=== PATIENT | male | born 1995 | race Native Hawaiian/Other Pacific Islander ===

== ENCOUNTER 2017-02-15 18:16 | Emergency (ER) | payer SELFPAY ==
[2017-02-15 18:21] VITALS: BP 149/65; PULSE 90; RESP 16; TEMP 98.7; O2SAT 99
--- NOTE | 2017-02-15 18:46 | ED PDOC ---
HPI: General Adult Time Seen by Provider: 02/15/17 18:23 Chief Complaint (Nursing): Abnormal Skin Integrity Chief Complaint (Provider): right hand laceration History Per: Patient History/Exam Limitations: no limitations Additional Complaint(s): García Bauer is a 21 year old right hand dominant male who presents to the emergency department with superficial laceration to right palm sustained just prior to arrival when he accidentally cut his hand with a knife. He came right to ED. Tetanus is up to date. He denies any acute pain and he denies any numbness or tingling to affected area. PMD: None provided. Past Medical History Reviewed: Historical Data, Nursing Documentation, Vital Signs Vital Signs: Last Vital Signs Temp 98.7 F 02/15/17 18:18 Pulse 90 02/15/17 18:18 Resp 16 02/15/17 18:18 BP 149/65 02/15/17 18:18 Pulse Ox 99 02/15/17 18:51 - Medical History PMH: No Chronic Diseases - Surgical History Surgical History: No Surg Hx - Family History Family History: States: No Known Family Hx - Living Arrangements Living Arrangements: With Friends/Others - Social History Current smoker - smoking cessation education provided: No Alcohol: None Drugs: Denies - Immunization History Hx Tetanus Toxoid Vaccination: Yes (last booster 3 years ago) - Allergies Allergies/Adverse Reactions: Allergies Allergy/AdvReac Type Severity Reaction Status Date / Time No Known Allergies Allergy Verified 02/15/17 18:23 Review of Systems ROS Statement: Except As Marked, All Systems Reviewed And Found Negative ( laceration on right hand) Musculoskeletal: Positive for: Other (right hand laceration) Physical Exam - Reviewed Nursing Documentation Reviewed: Yes Vital Signs Reviewed: Yes - Physical Exam Appears: Positive for: Well, Non-toxic, No Acute Distress Skin: Positive for: Normal Color. Negative for: Rash Eye Exam: Positive for: Normal appearance Extremity: Positive for: Other (1 cm very superficial laceration to right palm. No active bleeding, full rom of all digits of right hand, normal sensation surrounding wound, normal distal sensation) Neurologic/Psych: Positive for: Alert, Oriented - ECG O2 Sat by Pulse Oximetry: 99 (RA) Pulse Ox Interpretation: Normal Medical Decision Making Medical Decision Making: Initial Impression: 21 y/o male with superficial laceration to right palm Wound is very superficial, no sutures indicated. Wound cleansed with NS and betadine and bandage applied. Patient was given wound care instructions. Scribe Attestation: Documented by Dirk Cardona, acting as a scribe for Eulalia RICCI. Provider Scribe Attestation: All medical record entries made by the Scribe were at my direction and personally dictated by me. I have reviewed the chart and agree that the record accurately reflects my personal performance of the history, physical exam, medical decision making, and the department course for this patient. I have also personally directed, reviewed, and agree with the discharge instructions and disposition. Disposition - Clinical Impression Clinical Impression: Hand laceration - Patient ED Disposition Is Patient to be Admitted: No Counseled Patient/Family Regarding: Diagnosis, Need For Followup - Disposition Referrals: [facility] [Outside] Disposition: Routine/Home Disposition Time: 18:53 Condition: STABLE Additional Instructions: Wash wound daily with soap and water. Apply neosporin once per day. Tylenol as needed for pain. Follow up with clinic in 2-3 days. Instructions: Laceration Without Closure (ED) Forms: [employer] (Romans[place])
== END 2017-02-15 19:07 | disposition home or self-care (01) ==
LOC: H.ER 18:16
DX: S61.411A Laceration without foreign body of right hand, initial encounter (principal); W26.0XXA Contact with knife, initial encounter; Y92.89 Other specified places as the place of occurrence of the external cause